=== PATIENT | female | born 1980 | race Caucasian/White ===

== ENCOUNTER 2018-09-17 05:34 | Observation (INO) | payer BC, OTHER ==
[2018-09-10 13:32] LABS: BASOPHILS % 0.5 % (0.0-1.0); EOSINOPHILS # (AUTO) 0.3 (0.0-0.4); EOSINOPHILS % 3.3 % (0.0-6.0); HEMATOCRIT 37.5 % (34.2-44.1); HEMOGLOBIN 12.4 g/dL (12.0-16.0); LYMPHOCYTES % 37.1 % (18.0-39.1); MEAN CORPUSCULAR HEMOGLOBIN 30.8 pg (28-32); MEAN CORPUSCULAR HGB CONC 33.1 g/dL (31-35); MEAN CORPUSCULAR VOLUME 93.3 fL (81-99); MONOCYTES # (AUTO) 0.4 (0.2-0.8); MONOCYTES % 5.1 % (4.4-11.3); NEUTROPHILS # (AUTO) 4.4 (2.1-6.9); NEUTROPHILS % 53.8 % (38.7-80.0); PLATELET COUNT 273 x10e3/uL (140-360); RED BLOOD COUNT 4.02 x10e6/uL (3.6-5.1); RED CELL DISTRIBUTION WIDTH 12.3 % (11.7-14.4)
[2018-09-10 13:49] LABS: ALANINE AMINOTRANSFERASE 9 IU/L (0-55); ALBUMIN 4.2 g/dL (3.5-5.0); ALBUMIN/GLOBULIN RATIO 1.3 (0.8-2.0); ALKALINE PHOSPHATASE 59 IU/L (40-150); ANION GAP 11.3 mmol/L (8-16); BLOOD UREA NITROGEN 9 mg/dL (7-26); BUN/CREATININE RATIO 14 (6-25); CALCIUM 9.9 mg/dL (8.4-10.2); CARBON DIOXIDE 28 mmol/L (22-29); CHLORIDE 103 mmol/L (98-107); CREATININE, SERUM 0.64 mg/dL (0.57-1.11); EST GLOMERULAR FILTRATION RATE > 60 ML/MIN (60-); GLUCOSE 105 mg/dL (74-118); POTASSIUM 4.3 mmol/L (3.5-5.1); SODIUM 138 mmol/L (136-145)
[~2018-09-17] VITALS: Ht 154.9 cm; Wt 55.3 kg
[~2018-09-17 05:34] MED LIST: PHENTERMINE HCL15 MG; PROBIOTIC & AC1 EACH
[2018-09-17] MEDS ORDERED: CEFAZOLIN SOD 2 GM/D5W 50ML 50 ML IV ONE (06:27)
[2018-09-17] MEDS ORDERED: BUPIVACAINE 0.25%/EPI 30ML SDV INJ ONE (06:51)
[2018-09-17] MEDS ORDERED: ESTROGENS CONJUGATED VAGINAL CR 45 GM TUBE PV ONE (06:51)
[2018-09-17] MEDS ORDERED: FENTANYL CITRATE/PF 100MCG/2 ML INJ ONE ×2 (10:46→19:53)
[2018-09-17] MEDS: LACTATED RINGER'S 1,000 ML IV SCH ×2 (10:47→17:26)
[2018-09-17] MEDS ORDERED: DIPHENHYDRAMINE HCL 25 MG CAP PO PRN (11:00)
[2018-09-17] MEDS ORDERED: HYDROCODONE/APAP 5MG-325MG TAB PO PRN (11:00)
[2018-09-17] MEDS ORDERED: HYDROMORPHONE 1MG/1ML INJ IV PRN (11:00)
[2018-09-17] MEDS ORDERED: ONDANSETRON HCL INJ 2 MG/ML VIAL IV PRN (11:00)
[2018-09-17] MEDS ORDERED: HYDROCODONE/APAP 10MG-325MG TAB PO PRN (11:00)
[2018-09-17] MEDS ORDERED: PROMETHAZINE HCL (IM) 25 MG/ML VIAL IV PRN (11:00)
[2018-09-17] MEDS ORDERED: DOCUSATE SODIUM 100 MG CAP PO PRN (11:00)
[2018-09-17] MEDS ORDERED: ACETAMINOPHEN 325 MG TAB PO PRN (11:00)
[2018-09-17] MEDS ORDERED: MORPHINE SULFATE 2 MG/ML SYR ONE (11:19)
[2018-09-17] MEDS ORDERED: HYDROMORPHONE 2MG/ML 2 MG/ML ML ONE (11:30)
[2018-09-17 13:00] VITALS: BP 124/59
--- NOTE | 2018-09-17 13:12 | Operative Report ---
DATE OF PROCEDURE: September 17, 2018 VICE PRESIDENT TAX: AYANA Saldana. PREOPERATIVE DIAGNOSIS: Abnormal uterine bleeding. POSTOPERATIVE DIAGNOSIS: Abnormal uterine bleeding. OPERATION PERFORMED: Total laparoscopic hysterectomy with bilateral salpingectomy. ANESTHESIA: General. ESTIMATED BLOOD LOSS: 100 mL. COMPLICATIONS: None. FINDINGS: Patient had an approximately 6 week size anteverted uterus with apparently normal pelvic anatomy other than division of bilateral fallopian tubes secondary to previous tubal ligation, Filshie clips noted in place on the right fallopian tube, otherwise normal pelvic anatomy. SPECIMENS: Included uterus with cervix and bilateral fallopian tubes. INDICATIONS: The patient is a 38-year-old 2, para 2 with a long-standing history of abnormal uterine bleeding which was refractory to medical management as well as endometrial ablation. She desired definitive surgical management. Prior to the operation, the risks, benefits and alternatives were discussed with the patient and the consent was reconciled. DETAILS OF PROCEDURE: The patient was brought to the operating room and was properly identified. She was placed on the operating table in the modified dorsal lithotomy position in adjustable Joe stirrups and prepped and draped in the typical sterile fashion for a laparoscopic hysterectomy. A time out was then performed. A weighted speculum was then placed in the vagina with visualization of the cervix, which was grasped along the anterior lip with a single-tooth tenaculum. This facilitated placement of a Sage Telecomare uterine manipulator, followed by removal of the single-tooth and the speculum. Attention was then turned to the laparoscopic portion of the procedure. The infraumbilical skin was then infiltrated with 0.5% Marcaine and incised with a scalpel to create a 0.5-mm incision. A 5-mm trocar was placed under direct visualization with the laparoscope. The abdomen was then insufflated with CO2 gas to a maximal pressure of 15 mmHg. The abdomen and pelvis were inspected, with the above-noted findings. Secondary 5-mm trocars were then placed in the left and right lower quadrants under direct visualization with the laparoscope. After a thorough inspection of the pelvis, both ureters were visualized and peristalsis noted. Their course was well away from the planned procedure. A LigaSure was introduced and used to coagulate and divide the left utero-ovarian ligament and to transect the left fallopian tube from the surrounding mesosalpinx. This incision was carried along the mesosalpinx to the broad ligament. The LigaSure was used to coagulate and divide the left round ligament, and this incision was continued along the anterior leaf of the broad ligament, undermining and dividing the vesicouterine peritoneal reflection laterally to medially to the right of the midline. Good hemostasis was noted. The same procedure was then performed on the contralateral side. Sharp and blunt dissection was then used to mobilize the bladder off of the lower uterine segment, cervix and upper vagina. Both uterine vessels were skeletonized, coagulated and divided with the LigaSure down to the level of the internal cervical os. All pedicles were inspected and found to be hemostatic. The monopolar end of the LigaSure was then used to create the colpotomy incision against the VCare cup. The VCare with the attached uterus and fallopian tubes were removed from the patient's vagina. Good hemostasis was noted. The vaginal pack was placed within the patient's vagina, and attention was returned to the laparoscope. The abdomen and pelvis were copiously irrigated with normal saline, and all pedicles were inspected and found to be hemostatic. The umbilical port was then removed under direct visualization and replaced with a 11mm port. The vaginal cuff was then closed with a running 0 V-Loc suture using an Endo Stitch device. The vaginal cuff was inspected and found to be hemostatic. A piece of Surgicel was placed over the cuff. The umbilical laparoscopic port was then removed and replaced with a Poncho-Nola device, and 0 Vicryl suture was used to close the umbilical port site. The other 2 port sites were then removed under direct visualization and the abdomen desufflated. All incisions were then closed with 4-0 Monocryl in subcuticular fashion and covered with Dermabond. The patient was awakened from anesthesia and extubated in the operating room. The patient was authorized to be taken to the PACU in stable condition. Job#: [id number] CADE SALINAS
[2018-09-17 13:13] VITALS: BP 124/59
[2018-09-17 13:17] LABS: BASOPHILS % 0.2 % (0.0-1.0); EOSINOPHILS % 0.1 % (0.0-6.0); HEMATOCRIT 36.2 % (34.2-44.1); HEMOGLOBIN 12.2 g/dL (12.0-16.0); LYMPHOCYTES % 5.8 % (18.0-39.1); MEAN CORPUSCULAR HEMOGLOBIN 31.1 pg (28-32); MEAN CORPUSCULAR HGB CONC 33.7 g/dL (31-35); MEAN CORPUSCULAR VOLUME 92.3 fL (81-99); MONOCYTES # (AUTO) 0.1 (0.2-0.8); MONOCYTES % 0.6 % (4.4-11.3); NEUTROPHILS # (AUTO) 15.1 (2.1-6.9); NEUTROPHILS % 92.9 % (38.7-80.0); PLATELET COUNT 130 x10e3/uL (140-360); RED BLOOD COUNT 3.92 x10e6/uL (3.6-5.1); RED CELL DISTRIBUTION WIDTH 12.6 % (11.7-14.4)
[2018-09-17 13:29] VITALS: BP 124/59
[2018-09-17 13:32] LABS: ANION GAP 14.1 mmol/L (8-16); BLOOD UREA NITROGEN 14 mg/dL (7-26); BUN/CREATININE RATIO 23 (6-25); CALCIUM 8.9 mg/dL (8.4-10.2); CARBON DIOXIDE 19 mmol/L (22-29); CHLORIDE 109 mmol/L (98-107); CREATININE, SERUM 0.62 mg/dL (0.57-1.11); EST GLOMERULAR FILTRATION RATE > 60 ML/MIN (60-); GLUCOSE 133 mg/dL (74-118); POTASSIUM 4.1 mmol/L (3.5-5.1); SODIUM 138 mmol/L (136-145)
[2018-09-17] MEDS: KETOROLAC TROMETHAMINE 30 MG/ML VIAL IV SCH ×3 (13:39→23:48)
[2018-09-17] MEDS: HYDROMORPHONE 2MG/ML 2 MG/ML ML IV PRN ×2 (14:44→21:06)
[2018-09-17 15:27] VITALS: BP 118/69
[2018-09-17] MEDS ORDERED: ONDANSETRON HCL INJ 2 MG/ML VIAL ONE (17:52)
[2018-09-17] MEDS ORDERED: ACETAMINOPHEN 1000 MG/100 ML IV ONE (17:52)
[2018-09-17] MEDS ORDERED: NEOSTIGMINE 5 MG/5ML SYR ONE (17:52)
[2018-09-17] MEDS ORDERED: PROPOFOL IV EMULSION 10 MG/ML 20 ML VIAL ONE (17:52)
[2018-09-17] MEDS ORDERED: GLYCOPYRROLATE INJ 1MG/ 5 ML SYR ONE (17:52)
[2018-09-17] MEDS ORDERED: SEVOFLURANE INHAL SOLN 250 ML PEN BTL ONE (17:52)
[2018-09-17] MEDS ORDERED: CEFAZOLIN SOD 1 GM VIAL ONE (17:52)
[2018-09-17] MEDS ORDERED: ROCURONIUM BROMIDE 10 MG/ML 5ML VIAL ONE (17:52)
[2018-09-17] MEDS ORDERED: DEXAMETHASONE SOD PHOS INJ 4 MG/ML VIAL ONE (17:52)
[2018-09-17] MEDS ORDERED: LIDOCAINE HCL 2% LOCAL INJ 5 ML SDV VIAL INJ ONE (17:52)
[2018-09-17] MEDS ORDERED: MIDAZOLAM HCL 2 MG/2 ML VIAL ONE (19:53)
[2018-09-17 20:00] VITALS: BP 129/78
[2018-09-18] VITALS: BP 136/76
[2018-09-18] MEDS: LACTATED RINGER'S 1,000 ML IV SCH (01:31)
[2018-09-18 04:00] VITALS: BP 135/64
[2018-09-18 05:26] LABS: BASOPHILS % 0.2 % (0.0-1.0); EOSINOPHILS # (AUTO) 0.1 (0.0-0.4); EOSINOPHILS % 0.5 % (0.0-6.0); HEMATOCRIT 32.8 % (34.2-44.1); LYMPHOCYTES # (AUTO) 2.4 (1.0-3.2); LYMPHOCYTES % 17.8 % (18.0-39.1); MEAN CORPUSCULAR HEMOGLOBIN 30.7 pg (28-32); MEAN CORPUSCULAR HGB CONC 33.5 g/dL (31-35); MEAN CORPUSCULAR VOLUME 91.6 fL (81-99); MONOCYTES # (AUTO) 0.8 (0.2-0.8); MONOCYTES % 5.8 % (4.4-11.3); NEUTROPHILS % 75.3 % (38.7-80.0); PLATELET COUNT 237 x10e3/uL (140-360); RED BLOOD COUNT 3.58 x10e6/uL (3.6-5.1); RED CELL DISTRIBUTION WIDTH 12.3 % (11.7-14.4)
[2018-09-18] MEDS: KETOROLAC TROMETHAMINE 30 MG/ML VIAL IV SCH (06:03)
[2018-09-18 06:07] LABS: ANION GAP 11.9 mmol/L (8-16); BLOOD UREA NITROGEN 9 mg/dL (7-26); BUN/CREATININE RATIO 14 (6-25); CALCIUM 8.9 mg/dL (8.4-10.2); CARBON DIOXIDE 25 mmol/L (22-29); CHLORIDE 106 mmol/L (98-107); CREATININE, SERUM 0.64 mg/dL (0.57-1.11); EST GLOMERULAR FILTRATION RATE > 60 ML/MIN (60-); GLUCOSE 109 mg/dL (74-118); POTASSIUM 3.9 mmol/L (3.5-5.1); SODIUM 139 mmol/L (136-145)
[2018-09-18 08:13] VITALS: BP 119/59
[2018-09-18 09:00] VITALS: BP 119/59
[2018-09-18] MEDS: SIMETHICONE 80 MG CHEW PO PRN ×2 (09:00→15:28)
[2018-09-18] MEDS ORDERED: SIMETHICONE80 MG PO (09:15)
[2018-09-18] MEDS ORDERED: Hydrocodone/Apap 5MG-325MG PO (09:15)
[2018-09-18] MEDS ORDERED: OMEPRAZOLE40 MG PO (09:15)
[2018-09-18] MEDS ORDERED: COLACE100 M1 PO (09:15)
[2018-09-18] MEDS ORDERED: IBUPROFEN600 MG PO (09:17)
[2018-09-18 12:19] VITALS: BP 132/63
[2018-09-18 16:00] VITALS: BP 137/77
== END 2018-09-18 18:15 | disposition home or self-care (01) ==
LOC: OR 05:34 → PACU V 11:37 → IMCU 12:26
PROVIDERS: ADMIT Obstetrics & Gynecology Obstetrics; ATTEND Obstetrics & Gynecology Obstetrics
DX: N93.8 Other specified abnormal uterine and vaginal bleeding (principal); N72 Inflammatory disease of cervix uteri; Q50.5 Embryonic cyst of broad ligament; N20.0 Calculus of kidney
CPT/HCPCS: 36415 ×3; 58552; 80048 ×2; 80053; 84702; 85025 ×3; 86850; 86900; 88307; G0378 ×2; J0131; J0690 ×2; J1100; J1170 ×2; J1885 ×2; J2001; J2250; J2270; J2405; J2704; J3490; J7120 ×2

== ENCOUNTER → 2021-01-05 | Outpatient (CLI) | payer BC, OTHER ==
[~2021-01-05] MED LIST changes: +COLACE100 M1 PO; +COVID-19 VACC, MRNA(MODERNA)/PF 100 MCG/0.5 ML VIAL IM ONE; +Hydrocodone/Apap 5MG-325MG PO; +IBUPROFEN600 MG PO; +OMEPRAZOLE40 MG PO; +SIMETHICONE80 MG PO
== END | disposition home or self-care (01) ==
LOC: VACCPMC 12:50
DX: Z23 Encounter for immunization (principal); Z20.822 Contact with and (suspected) exposure to COVID-19
CPT/HCPCS: 91301

== ENCOUNTER → 2021-02-02 | Outpatient (CLI) | payer BC, OTHER | END | disposition home or self-care (01) | LOC: VACCPMC 12:13 | DX: Z23 Encounter for immunization (principal); Z20.822 Contact with and (suspected) exposure to COVID-19 | CPT/HCPCS: 91301 ==